=== PATIENT | female | born 1995 | race Two or more races ===

== ENCOUNTER 2022-08-10 03:45 | Observation (INO) | payer MEDICAID ==
[~2022-08-10] VITALS: Ht 160 cm; Wt 72.6 kg
[2022-08-10] MEDS ORDERED: LACTATED RINGER'S 1,000 ML IV ONE (05:15)
[2022-08-10] MEDS ORDERED: PREN27TA7 OR (06:14)
[2022-08-10 06:34] LABS: Amphetamine Screen, Urine NEGATIVE (NEGATIVE); Barbiturate Scree,Urine NEGATIVE (NEGATIVE); Benzodiazephine Screen, Urine NEGATIVE (NEGATIVE); Cannabinoid Screen, Urine NEGATIVE (NEGATIVE); Urine Blood Negative /uL (Negative); Urine Specific Gravity 1.009 (1.001-1.035)
[2022-08-10 06:37] LABS: Alcohol, Urine < 3.0 mg/dL (0-10); Cocaine Screen, Urine NEGATIVE (NEGATIVE); Opiate Scree,Urine NEGATIVE (NEGATIVE); Phencyclidine Screen, Urine NEGATIVE (NEGATIVE)
[2022-08-10 08:39] LABS: Urine WBC >100 /hpf (0 - 5)
== END 2022-08-10 06:41 | disposition home or self-care (01) ==
LOC: LDRP 03:45
PROVIDERS: ADMIT Obstetrics & Gynecology; ATTEND Obstetrics & Gynecology
DX: O36.8130 Decreased fetal movements, third trimester, not applicable or unspecified (principal); Z3A.35 35 weeks gestation of pregnancy; Z79.899 Other long term (current) drug therapy
CPT/HCPCS: 59025; 76818; 80307; 81001; 81002; 94760; G0378; 96365

== ENCOUNTER 2022-08-31 10:26 | Observation (INO) | payer SELFPAY ==
[~2022-08-31 10:26] MED LIST: PREN27TA7 OR
== END 2022-08-31 14:20 | disposition home or self-care (01) ==
LOC: LDRP 10:26
PROVIDERS: ADMIT Obstetrics & Gynecology; ATTEND Obstetrics & Gynecology
DX: O62.9 Abnormality of forces of labor, unspecified (principal); Z3A.38 38 weeks gestation of pregnancy
CPT/HCPCS: 59025; 76805; 81002; 94760; G0378